=== PATIENT | male | born 1940 ===

== ENCOUNTER 2016-07-30 12:25 | Emergency (ER) | payer SELFPAY ==
[2016-07-30 12:42] VITALS: BP 132/87; PULSE 88; RESP 20; TEMP 98; O2SAT 98
--- NOTE | 2016-07-30 13:03 | C.PDOC ---
History Of Present Illness 75 Y/O MALE C/O LEFT SHOULDER, R HIP PAIN FOR 2 WEEKS. DENIES TRAUMA, SWELLING. TOOK 2 TABS OF ADVIL YESTERDAY WITH IMPROVEMENT. NO OTHER MEDICAL HISTORY. Time Seen by Provider: 07/30/16 12:45 Chief Complaint (Nursing): Upper Extremity Problem/Injury History Per: Patient History/Exam Limitations: no limitations Onset/Duration Of Symptoms: Days Current Symptoms Are (Timing): Still Present Recent travel outside of the [place]: No Past Medical History Reviewed: Historical Data, Nursing Documentation, Vital Signs Vital Signs: Last Vital Signs Temp 98 F 07/30/16 12:41 Pulse 88 07/30/16 12:41 Resp 20 07/30/16 12:41 BP 132/87 07/30/16 12:41 Pulse Ox 98 07/30/16 13:14 - Medical History PMH: HTN Family History: States: Unknown Family Hx - Social History Hx Alcohol Use: Yes Hx Substance Use: No - Immunization History Hx Tetanus Toxoid Vaccination: No Hx Influenza Vaccination: No Hx Pneumococcal Vaccination: No Review Of Systems Except As Marked, All Systems Reviewed And Found Negative. Constitutional: Negative for: Fever, Chills Respiratory: Negative for: Cough Gastrointestinal: Negative for: Abdominal Pain Musculoskeletal: Positive for: Shoulder Pain (LEFT), Other (RIGHT HIP PAIN ) Skin: Negative for: Rash Neurological: Negative for: Weakness, Numbness Physical Exam - Physical Exam Appears: Non-toxic, No Acute Distress Skin: Normal Color, Warm, Dry Head: Atraumatic, Normacephalic Chest: Symmetrical Cardiovascular: Rhythm Regular Respiratory: Normal Breath Sounds, No Rales, No Rhonchi, No Wheezing Gastrointestinal/Abdominal: Soft, No Tenderness Extremity: Normal ROM, No Tenderness, Capillary Refill (< 2 SEC. ), No Deformity , No Swelling Extremity: Bilateral: Normal Color And Temperature Neurological/Psych: Oriented x3, Normal Speech, Normal Cognition ED Course And Treatment O2 Sat by Pulse Oximetry: 98 (RA) Pulse Ox Interpretation: Normal Progress - Re-Evaluation Re-evaluation Note: 07/30/16 13:26 PT IN NO ACUTE DISTRESS ON REEVALUATION. PROPER DOSING OF MOTRIN EXPLAINED. PATIENT REFERRED TO CLINIC. Disposition Counseled Patient/Family Regarding: Diagnosis, Need For Followup - Disposition Referrals: Clinic,Med Surg [Primary Care Provider] - [facility] [Outside] Disposition: HOME/ ROUTINE Disposition Time: 13:13 Condition: GOOD Additional Instructions: TOME ADVIL 3-4 TABAS CADA 6-8 HORAS COTY SE NECESITA PARA EL DOLOR. Instructions: Musculoskeletal Pain (ED) Print Language: KOREAN - Clinical Impression Clinical Impression: Shoulder pain, Hip pain - Scribe Statement The provider has reviewed the documentation as recorded by the Zoya Freed Provider Attestation: All medical record entries made by the Zoya were at my direction and personally dictated by me. I have reviewed the chart and agree that the record accurately reflects my personal performance of the history, physical exam, medical decision making, and the department course for this patient. I have also personally directed, reviewed, and agree with the discharge instructions and disposition.
== END 2016-07-30 13:20 | disposition home or self-care (01) ==
LOC: SUPCPDRO 12:25 → C.ER 12:25
DX: M25.512 Pain in left shoulder (principal); M25.551 Pain in right hip

== ENCOUNTER 2016-10-15 06:15 | Emergency (ER) | payer MEDICAID ==
[2016-10-15 06:26] VITALS: RESP 18; TEMP 97.6
--- NOTE | 2016-10-15 07:32 | C.PDOC ---
History Of Present Illness 76-year-old male, PMHx includes Hypertension, presents to the emergency department with complaints of shoulder pain. Patient states he has been experiencing non-traumatic left-shoulder pain for the past several months. Patient rates pain 10/10, and states he has not followed-up with a physician for it. Pain is intermittent in nature and increased with movement, that is associated with a "popping" sensation when he moves it. He reports taking three Advils for it this morning. Patient denies fevers, chills, chest pain, shortness of breath, nausea/vomiting, headache, dizziness, numbness/weakness, or any other associated symptoms. No other complaints at this time. Time Seen by Provider: 10/15/16 07:11 Chief Complaint (Nursing): Upper Extremity Problem/Injury History Per: Patient History/Exam Limitations: no limitations Onset/Duration Of Symptoms: Days Current Symptoms Are (Timing): Still Present Severity: Moderate Past Medical History Reviewed: Historical Data, Nursing Documentation, Vital Signs Vital Signs: Last Vital Signs Temp 97.6 F 10/15/16 06:22 Pulse 71 10/15/16 06:22 Resp 18 10/15/16 06:22 BP 176/80 H 10/15/16 06:22 Pulse Ox 98 10/15/16 07:47 - Medical History PMH: HTN Family History: States: No Known Family Hx - Social History Hx Alcohol Use: Yes Hx Substance Use: No - Immunization History Hx Tetanus Toxoid Vaccination: No Hx Influenza Vaccination: No Hx Pneumococcal Vaccination: No Review Of Systems Constitutional: Negative for: Fever, Chills Cardiovascular: Negative for: Chest Pain, Palpitations Respiratory: Negative for: Shortness of Breath Musculoskeletal: Positive for: Shoulder Pain (Left) Neurological: Negative for: Weakness, Numbness, Headache, Dizziness Physical Exam - Physical Exam Appears: Non-toxic, No Acute Distress Skin: Warm, Dry, No Rash Extremity: No Normal ROM (Painful range of motion), No Tenderness, Capillary Refill (<2 seconds), No Deformity, No Swelling Neurological/Psych: Oriented x3, Normal Motor, Normal Sensation ED Course And Treatment O2 Sat by Pulse Oximetry: 98 Medical Decision Making Medical Decision Making: Impression: 76y/o M comes in w/ Left shoulder pain Plan: * Ultram * X-Ray: L Shoulder * Reassess and Disposition * XRay shows no fractures, significant osteopenia noted. Patient feels better after medication. Plan to d/c with PMD f/u. P Patient follows in [place] Disposition Counseled Patient/Family Regarding: Studies Performed, Diagnosis, Need For Followup - Disposition Referrals: FAMILY PROVIDER,NO [Primary Care Provider] - Disposition: HOME/ ROUTINE Disposition Time: 08:43 Condition: STABLE Additional Instructions: Follow up with your doctor for further management and Orthopedic follow up. Prescriptions: Ibuprofen [Motrin] 600 mg PO TID #15 tab traMADol/Acetaminophen [Ultracet 37.5/325 mg] 1 tab PO HS PRN #5 tab PRN Reason: pain Instructions: Osteopenia (GEN) Forms: Gen Discharge Inst Sinhala - POA Present On Arrival: None - Clinical Impression Clinical Impression: Shoulder pain, left, Osteopenia - Scribe Statement The provider has reviewed the documentation as recorded by the Scribe (Tia Lewis) All medical record entries made by the Scribe were at my direction and personally dictated by me. I have reviewed the chart and agree that the record accurately reflects my personal performance of the history, physical exam, medical decision making, and the department course for this patient. I have also personally directed, reviewed, and agree with the discharge instructions and disposition.
[2016-10-15 09:03] VITALS: BP 125/72; PULSE 63; O2SAT 96
--- NOTE | 2016-10-15 09:11 | RAD ---
PROCEDURE: Radiographs of the Left Shoulder HISTORY: chronic pain COMPARISON: No prior. FINDINGS: BONES: Normal. No fracture. Mild diffuse osteopenia. JOINTS: There are degenerative changes appreciated in the acromioclavicular joint and milder degenerative changes seen in the glenohumeral joint. No dislocation. SOFT TISSUES: No calcific bursitis appreciated. Overlying soft tissue is within normal limits. OTHER FINDINGS: Visualized left ribs and left lung are unremarkable. No AC joint widening is seen. Humeral shaft is intact. IMPRESSION: No evidence of fracture or dislocation. Mild degenerative changes and osteopenia.
== END 2016-10-15 09:03 | disposition home or self-care (01) ==
LOC: C.ER 06:15 → SUPCPDRO 06:15 → C.ER 09:03
DX: M25.512 Pain in left shoulder (principal); M85.80 Other specified disorders of bone density and structure, unspecified site